=== PATIENT | male | born 1960 | race Caucasian/White ===

== ENCOUNTER 2021-11-03 10:36 | Emergency (ER) | payer MEDICARE, OTHER ==
[2021-11-03 10:57] VITALS: BP 159/111; PULSE 102; RESP 18; TEMP 98.9
--- NOTE | 2021-11-03 12:16 | ED ---
URI HPI - General Chief Complaint: Upper Respiratory Infection Stated Complaint: covid+, wants infusion Time Seen by Provider: 11/03/21 11:18 Source: patient, RN notes reviewed Mode of arrival: ambulatory Limitations: no limitations - History of Present Illness Initial Comments: 61-year-old presented from chief complaint covid 19 positive. Patient states he took at home test which was positive. Patient states that symptoms for last 2 days. Patient went of the or chills bodyaches cough congestion. Patient said no prior vaccine no other associated complaints. - Related Data Allergies Allergy/AdvReac Type Severity Reaction Status Date / Time No Known Allergies Allergy Verified 11/03/21 10:54 Review of Systems ROS Statement: Those systems with pertinent positive or pertinent negative responses have been documented in the HPI. ROS Other: All systems not noted in ROS Statement are negative. Past Medical History Past Medical History: No Reported History History of Any Multi-Drug Resistant Organisms: None Reported Past Surgical History: No Surgical Hx Reported Additional Past Surgical History / Comment(s): neck surgery Past Psychological History: No Psychological Hx Reported Smoking Status: Never smoker Past Alcohol Use History: None Reported Past Drug Use History: None Reported General Exam Limitations: no limitations General appearance: alert, in no apparent distress Head exam: Present: atraumatic, normocephalic, normal inspection Eye exam: Present: normal appearance, PERRL, EOMI. Absent: scleral icterus, conjunctival injection, periorbital swelling ENT exam: Present: normal exam, normal oropharynx, mucous membranes moist Neck exam: Present: normal inspection, full ROM. Absent: tenderness, meningismus, lymphadenopathy Respiratory exam: Present: normal lung sounds bilaterally. Absent: respiratory distress, wheezes, rales, rhonchi, stridor Cardiovascular Exam: Present: regular rate, normal rhythm, normal heart sounds. Absent: systolic murmur, diastolic murmur, rubs, gallop, clicks Course Vital Signs 11/03/21 11/03/21 10:54 11:31 Temperature 98.9 F Pulse Rate 102 H Respiratory 18 18 Rate Blood Pressure 159/111 O2 Sat by Pulse 100 Oximetry Medical Decision Making - Medical Decision Making Patient is positive for COVID-19 patient did receive monoclonal antibodies will be discharged in stable condition. - Lab Data Lab Results 11/03/21 Range/Units 10:57 Coronavirus (PCR) Detected A (Not Detectd) Disposition Clinical Impression: COVID-19 Disposition: HOME SELF-CARE Condition: Stable Instructions (If sedation given, give patient instructions): Coronavirus Disease 2019 (COVID-19) Additional Instructions: Please return to the Emergency Department if symptoms worsen or any other concerns. Is patient prescribed a controlled substance at d/c from ED?: No Referrals: None,Stated [Primary Care Provider] - 1-2 days Time of Disposition: 12:16
[2021-11-03] MEDS ORDERED: SODIUM CHLORIDE 0.9% 50 ML IVPB ONE (12:30)
[2021-11-03] MEDS ORDERED: BAMLANIVIMAB (EUA) 700 MG, ETESEVIMAB (EUA) 1,400 MG in SODIUM CHLORIDE 0.9% 50 ML IVPB ONE (12:30)
== END 2021-11-03 14:02 | disposition home or self-care (01) ==
LOC: EC 10:36
DX: U07.1 COVID-19 (principal)
CPT/HCPCS: 87635; 99283; J3490